=== PATIENT | female | born 1970 | race African-American/Black ===

== ENCOUNTER 2016-06-02 18:06 | Inpatient (IN) | payer OTHER ==
[~2016-06-02] VITALS: Ht 162.6 cm; Wt 81.6 kg
--- NOTE | ~2016-06-02 | H ---
[facility] [place] [address] HISTORY AND PHYSICAL Name: AUSTIN WATT Room #: 450-P ADM IN M.R.#: [id number] Admission: 06/02/16 Attend Phys: Jennifer Edwards MD Discharge: Date of : 68 Report #: [id number] THIS REPORT FOR: //name// CC: Jennifer Hector ATTENDING PHYSICIAN: Dr. Jennifer Edwards. PRIMARY CARE PHYSICIAN: Dr. Elena Hector. CHIEF COMPLAINT: Right arm and leg weakness and numbness. HISTORY OF PRESENT ILLNESS: The patient is a 46-year-old -[place] female who came into the ER with the above complaints. She has noticed, she says this started about 4 weeks ago, mostly with weakness on her left side, which eventually resolved and then about 2 weeks ago, she started having some right arm and right leg numbness and weakness. They said it progressively gotten worse, she says when she ambulates her right leg will drag but she is able to ambulate without any help, she says her right arm has now become completely numb and weak to the point she cannot even lift her arm up to try to do her hair therefore she has been wearing wigs. She has had an associated headache. She has also noticed some mid back pain for at least 2 weeks. She does have somewhat complicated past neurologic history. She says she has been diagnosed with MS and not on any current treatment. She has also had transverse myelitis and at one point, she had been in a wheelchair for a year. She also reports a history of CVA x 3. After her stroke, she says she her symptoms always completely resolved that she has not had any residual affect, so this right-sided weakness is completely new, she actually was just seen at [facility], it looks like ER for some of these complaints last week. She says she had a CT of the head done, which was negative and she was discharged home on prednisone and pain pills. She was called afterwards and told there was concern regarding findings on her thoracic CT, it was possible lesion at T5, she was told she needs to get in to see a doctor and likely a neurosurgeon. She had just made an appointment with the neurosurgeon, but was not until 06/18/2016. She was called by her primary care physician and told she needs to get to the ER to be evaluated. PAST MEDICAL HISTORY: Reported CVA x 3, seizure disorder, asthma, hypertension, anemia, hyperlipidemia, transverse myelitis, GERD, anxiety, multiple sclerosis, and kidney and liver cancer. She denies any difficulty with her speech. She has not been having any confusion. Denies any difficulty swallowing. Denies shortness of breath. PAST SURGICAL HISTORY: Hysterectomy and D and C. ALLERGIES: ALBUTEROL . [address] [address] HISTORY AND PHYSICAL Name: AUSTIN WATT Room #: 450-P [place] IN ..#: [id number] Admission: 06/02/16 Attend Phys: Jennifer Edwards MD Discharge: Date of : 68 Report #: [id number] MEDICATIONS: Iron 325 mg b.i.d. fenofibrate 160 mg daily, fish oil 1000 mg daily. Clonidine patch 0.2 mg every weekly, which looks like it was just started, nitroglycerin p.r.n., carvedilol 25 mg b.i.d., amlodipine 10 mg daily, ibuprofen 600 mg b.i.d., aspirin 81 mg daily, hydrocodone 1 tab q. 4 hours p.r.n., Neurontin 600 mg p.r.n. for seizures, Elavil 25 mg at bedtime, Celexa 20 mg daily, potassium 20 mEq daily, hydrochlorothiazide 12.5 mg daily, Singulair 10 mg at bedtime, Colace 100 mg b.i.d., Protonix 40 mg daily and multivitamin daily. SOCIAL HISTORY: The patient lives at home with her spouse, son and grand baby. She denies any tobacco, alcohol or drug use. 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 She normally ambulates independently. FAMILY HISTORY: Her father had multiple strokes. She has a niece who has MS. She has 2 siblings who of end-stage renal disease and one brother who is currently on hemodialysis. REVIEW OF SYSTEMS: The patient also has a history of reported kidney and liver cancer. She said she was seen at [facility], but did not require nephrectomy or surgery. She was treated with the radiation, but did not require chemotherapy again the details of this are otherwise unknown, but she says this was at least 5-6 years ago and most of her care was done at [facility]. PHYSICAL EXAMINATION: GENERAL: The patient is an alert female in no acute distress. VITAL SIGNS: Temperature is 36.9, heart rate 69, respirations 16, blood pressure is 161/126, her oxygen 99% on room air. HEENT: PERRLA. Sclerae is nonicteric. Oral mucosa is pink and moist. NECK: Supple, no JVD noted. CARDIOVASCULAR: Normal S1, S2. No murmurs, rubs or gallops. RESPIRATORY: Breath sounds are clear bilaterally. No wheezing or rhonchi. Breathing is nonlabored. ABDOMEN: Soft, nontender, nondistended with positive bowel sounds. VASCULAR: No edema noted. Pedal pulses are 2+. NEUROLOGIC: The patient did have some pain with in her right eye when performing EOMs when socially when she looked to the upper right. There she did have some right arm and right leg weakness but she was able to hold her arm and leg up off the bed with muscle strength 4/5 in the right arm and right leg. She has had some decreased sensation on the right side and she will follow commands. Her left side has no weakness. MUSCULOSKELETAL: She did have significant point tenderness in her mid thoracic area to palpation. There is no swelling or erythema in this area, there is no CVA tenderness, when I press on area, she said the pain shot up her spine into the right side of her face. PSYCHIATRIC: The patient is calm and cooperative, but does have a very flat [facility] [address] [place] [address] HISTORY AND PHYSICAL Name: KEILA AUSTIN FLORES Room #: [address] [place] [address] [place] ..#: [id number] Admission: 06/02/16 Attend Phys: Jennifer Edwards MD Discharge: Date of : 68 Report #: [id number]. LABORATORY DATA AND DIAGNOSTICS: WBC 10.8, hemoglobin 13.1, platelets 320. Sodium 143, potassium 3.3, BUN 9, creatinine 1.0. Glucose 150. EKG showing sinus rhythm and CT of the head is negative, it does not mention any old infarcts. ASSESSMENT AND PLAN: 1. Right-sided numbness and weakness. Apparently, the patient was told she has some short of lesion on T5 on the recent exam. We will try to get the records from [facility]. she does have a history of MS and transverse myelitis, which may be causing these symptoms. We will consult Neurology further evaluate with the brain, cervical and thoracic MRI. There is concern for her due to her history EMS and transverse myelitis, we will go ahead and treat with a high dose following Solumedrol x 1 and await further Neurology recommendations. 2. Hypertension. Blood pressure is elevated initially, but is coming down. We will hold her home blood pressure medicines due to possible CVA and allow for permissive hypertension. 3. History of cerebrovascular accident. This was reported, there is no old infarct seen on her current CT. 4. Seizure disorder. Continue Vimpat as at home. 5. Reported history of kidney and liver cancer, hopefully the records from [facility] will shed some light on this as well. 6. Deep venous thrombosis prophylaxis, place sequential compression devices. We will continue to follow the patient closely throughout the hospitalization and make changes based on clinical status. <ELECTRONICALLY SIGNED> By: JASMINA Hidalgo 06/03/16 0658 [id number] JASMINA Hidalgo /tiara
--- NOTE | ~2016-06-02 | 2DMMODE ---
[facility] [address] [address] 2 D/M-MODE ECHOCARDIOGRAM Name: AUSTIN WATT Room #: 450-P [facility] IN ..#: [id number] Admission: 06/02/16 Attend Phys: Fatmata Tobin Discharge: Date of : 68 Date of Service: 06/03/16 1643 Report #: [id number] THIS REPORT FOR: //name// APPROVED REPORT EXAM: Comprehensive 2D, Doppler, and color-flow Echocardiogram Patient Location: Echo lab Blood Pressure: 145/91 mmHg HR: 77 bpm Other Information Study Quality: Excellent Indications CVA/TIA Hypertension/HDD Echo Enhancing Agent Indication: Rule out Shunt Agent/Amount Used: Agitated Saline 7 cc 2D Dimensions RVDd: 34.42 mm LVEF(%): 65.23 (>50%) IVSd: 15.04 (7-11mm) LVOT Diam: 22.82 (18-24mm) LVDd: 44.11 mm PWd: 16.07 (7-11mm) Ascending Aorta: 26.73 mm LVDs: 28.43 (25-40mm) IVC: 13.00 mm Aortic Root: 27.00 mm Mckeon's LVEF: 65.23 % Volumes Left Atrial Volume (Systole) Single Plane 4CH: 25.84 mL Single Plane 2CH: 26.86 mL LA ESV Index: 15.00 mL/m2 Aortic Valve AoV Peak Cristino.: 1.33 m/s AO Peak Gr.: 7.05 mmHg LV Max P.46 mmHg LV Max: 1.06 m/s Mitral Valve MV PHT: 88.52 ms [facility] [address] [place] [address] 2 D/M-MODE ECHOCARDIOGRAM Name: AUSTIN WATT Room #: 450-P [facility] IN [facility]#: [id number] Admission: 06/02/16 Attend Phys: Fatmata Cherry Mar Discharge: Date of : 68 Date of Service: 06/03/16 1643 Report #: [id number] E Max Cristino.: 0.55 m/s E/A Ratio: 0.6 MV A Cristino.: 0.97 m/s MV Decel. Time: 305.25 ms Pulmonary Valve PV Peak Cristino.: 1.07 m/s PV Peak Gr.: 4.56 mmHg Tricuspid Valve TR Peak Cristino.: 2.38 m/s RAP Estimate: 5.00 mmHg TR Peak Gr.: 22.68 mmHg Left Ventricle The left ventricle is normal size. There is normal LV segmental wall motion. Moderate concentric left ventricular hypertrophy. Left ventricular systolic function is normal. The left ventricular ejection fraction is within the normal range. LVEF is 60-65%. Grade I - abnormal relaxation pattern. Right Ventricle The right ventricle is normal size. The right ventricular systolic function is normal. Atria The left atrium size is normal. Injection of bubbles documented an interatrial shunt. The right atrium size is normal. Aortic Valve The aortic valve is normal in structure. No aortic regurgitation is present. There is no aortic valvular stenosis. Mitral Valve The mitral valve is normal in structure. There is no mitral valve regurgitation noted. Tricuspid Valve The tricuspid valve is normal in structure. There is trace tricuspid regurgitation. The right atrial pressure is estimated at 5 mmHg. There is no pulmonary hypertension. The estimated PAP was 28 mmHg. Pulmonic Valve The pulmonary valve is normal in structure. There is no pulmonic valvular regurgitation. Great Vessels The aortic root is normal in size. IVC is normal in size and collapses >50% with inspiration. [address] [address] 2 D/M-MODE ECHOCARDIOGRAM Name: AUSTIN WATT Room #: 450-P [facility] IN M.R.#: [id number] Admission: 06/02/16 Attend Phys: Fatmata Tobin Discharge: Date of : 68 Date of Service: 06/03/16 1643 Report #: [id number] Pericardium There is no pericardial effusion. <Conclusion> The left ventricle is normal size. LVEF is 60-65%. There is trace tricuspid regurgitation. The right atrial pressure is estimated at 5 mmHg. There is no pulmonary hypertension. The estimated PAP was 28 mmHg. Injection of bubbles documented an interatrial shunt. <ELECTRONICALLY SIGNED> By: Vinayak Moore MD 06/03/161642 42 42 Vinayak Moore MD /INF
--- NOTE | ~2016-06-02 | EKG ---
[address] [address] ELECTROCARDIOGRAM REPORT Name: AUSTIN WATT Room [facility]: 450[facility] .R.#: [id number] Admission: 06/02/16 Attend Phys: Fatmata Lion Discharge: 06/04/16 Date of : 68 Report #: [id number] THIS REPORT FOR: //name// [facility] ED Test Date: 2016-06-02 Test Time: 18:20:07 Pat Name: AUSTIN FLORES Department: Room: [facility] Gender: F Cashier Office: [facility] : 1970 Requested By: Yajaira Romero Order Number: [id number] MD: Dejuan Sarkar Measurements Intervals [place] Rate: 91 P: 26 [place]: 162 QRS: -24 QRSD: 98 T: -10 QT: 413 QTc: 509 Interpretive Statements Sinus rhythm Left atrial enlargement Abnormal R-wave progression, late transition Left ventricular hypertrophy Nonspecific T abnormalities, anterior leads Electronically Signed On 06-06-2016 12:42:13 CDT by Dejuan Sarkar [email or web address] <ELECTRONICALLY SIGNED> By: Dejuan Sarkar MD 06/06/16 1242 [id number] Dejuan Sarkar MD /EPI
[~2016-06-02 18:06] MED LIST: ADVAIR 100-501 EACH INH; ALBUTEROL2.5 MG/0.1 INH; AMITRIPTYLINE H25 M2 PO; AMLODIPINE BESY10 MG PO; ASPIR 8181 MG PO; CELEXA20 MG PO; COLACE100 MG PO; DILANTIN 100 M100 MG PO; DILANTIN100 MG; DILANTIN100 MG PO; FENOFIBRATE160 MG PO; FISH OIL 1,001000 M2 PO; HYDROCHLOROTH12.5 M2 PO; HYDROCODONE-AP1 EAC6 PO; IBUPROFEN 200200 M1 PO; IBUPROFEN 600600 M1 PO; IPRAT-ALBUT 0.5-3 ML IH; IRON325 PO; LOPRESSOR25 PO; LORTAB 7.5-3251 EACH PO; METOPROLOL; MULTIVITAMINS1 EAC7 PO; NEURONTIN 300300 M1 PO; NEURONTIN600 MG PO; NITROGLYCERIN0.4 MG SUBLING; NORCO 5-325 TA1 EACH PO; OMEPRAZOLE40 MG PO; ONDANSETRON HCL4 M2 PO; PHENERGAN 25 MG25 M1 PO; POTASSIUM20 PO; PRENATAL PO; PREVACID15 MG PO; PROTONIX 20 MG20 M1 PO; PROTONIX40 M1 PO; PROVENTIL HFA6.7 G1 INH; SINGULAIR 10 MG10 M1 PO; TOPROL XL25 MG PO; TYLENOL W/CODEI1 TA2 PO; VIMPAT200 MG PO; ZOFRAN4 MG PO
[2016-06-02 18:07] VITALS: BP 161/126
[2016-06-02 19:15] VITALS: BP 121/81
[2016-06-02 20:10] LABS: ABSOLUTE NEUTROPHILS 8.9 thou/uL (1.4-8.2); BASOPHILS 0.5 % (0.0-2.0); HEMATOCRIT 39.4 % (37.0-47.0); HEMOGLOBIN 13.1 gm/dL (12.0-15.0); LYMPHOCYTES 13.8 % (24.0-44.0); MCH 27.5 pg (26.0-34.0); MCHC 33.3 g/dL (28.0-37.0); MCV 82.6 fL (80.0-100.0); MONOCYTES 3.6 % (1.0-8.0); PLATELET COUNT 320 thou/uL (150-400); POLYS 82.1 % (36.0-66.0); RBC 4.77 mil/uL (4.20-5.00); RDW 15.1 % (10.5-14.5); WBC 10.8 thou/uL (4.0-11.0)
[2016-06-02 20:12] LABS: MANUAL DIFF NO
[2016-06-02 20:18] LABS: CALCIUM 9.7 mg/dL (8.5-10.1); POTASSIUM 3.3 mmol/L (3.5-5.1)
[2016-06-02 20:49] VITALS: BP 156/92
[2016-06-02 21:07] VITALS: BP 150/98
[2016-06-02 23:55] VITALS: BP 153/97
[2016-06-03] MEDS ORDERED: COREG25 MG PO (01:08)
[2016-06-03] MEDS ORDERED: CATAPRES-TTS 20.2 MG TD (01:08)
[2016-06-03 03:30] VITALS: BP 137/87
[2016-06-03 07:15] VITALS: BP 145/91
[2016-06-03 08:46] LABS: ANION GAP 6 mmol/L (7-16); BUN 13 mg/dL (7-18); CALCIUM 9.3 mg/dL (8.5-10.1); CHLORIDE 106 mmol/L (98-107); CHOLESTEROL 250 mg/dL (<200); CO2 31 mmol/L (21-32); CREATININE 1.2 mg/dL (0.6-1.3); GLUCOSE 148 mg/dL (70-99); HDL CHOLESTEROL 89 mg/dL (>40); LDL CHOLESTEROL 150 mg/dL (<100); POTASSIUM 3.6 mmol/L (3.5-5.1); SODIUM 143 mmol/L (136-145); TC:HDL 2.8 Ratio (Not establshd); TRIGLYCERIDE 56 mg/dL (<150); VLDL 11 mg/dL (<40)
[2016-06-03 09:12] LABS: TSH 0.688 uIU/mL (0.358-3.740)
[2016-06-03 15:30] VITALS: BP 159/97
[2016-06-03 19:44] VITALS: BP 146/91
[2016-06-04 00:10] LABS: GLYCOHEMOGLOBIN (HGB A1C) 5.7 % (4.8-5.6)
[2016-06-04 03:47] VITALS: BP 141/89
[2016-06-04 07:10] VITALS: BP 144/80
[2016-06-04 11:11] VITALS: BP 157/92
[2016-06-04 11:26] VITALS: BP 157/92
[2016-06-05 05:13] LABS: PROTEIN C ANTIGEN* 109 % (60-150)
== END 2016-06-04 13:45 | disposition home or self-care (01) | DRG 93 ==
LOC: ER 18:06 → 4W 20:21 → EROBS 20:21 → 4W 20:50
PROVIDERS: Emergency Medicine; Nurse Practitioner Acute Care; Psychiatry & Neurology Neurology
PROC: B547ZZA Ultrasonography of Left Subclavian Vein, Guidance (ICD-10-PCS; principal; 2016-06-02)
PROC: 05H633Z Insertion of Infusion Device into Left Subclavian Vein, Percutaneous Approach (ICD-10-PCS; principal; 2016-06-02)
DX: R90.82 White matter disease, unspecified (principal); R53.1 Weakness; G40.909 Epilepsy, unspecified, not intractable, without status epilepticus; J45.909 Unspecified asthma, uncomplicated; I10 Essential (primary) hypertension; E78.5 Hyperlipidemia, unspecified; K21.9 Gastro-esophageal reflux disease without esophagitis; F41.9 Anxiety disorder, unspecified; G35 Multiple sclerosis; I25.2 Old myocardial infarction; Z88.6 Allergy status to analgesic agent; Z88.0 Allergy status to penicillin; Z88.8 Allergy status to other drugs, medicaments and biological substances; Z91.041 Radiographic dye allergy status; Z90.710 Acquired absence of both cervix and uterus; Z79.899 Other long term (current) drug therapy; Z79.82 Long term (current) use of aspirin; Z86.73 Personal history of transient ischemic attack (TIA), and cerebral infarction without residual deficits; Z85.528 Personal history of other malignant neoplasm of kidney; Z85.05 Personal history of malignant neoplasm of liver
CPT/HCPCS: 10045; 27001